=== PATIENT | male | born 1955 | race Caucasian/White ===

== ENCOUNTER 2017-12-14 12:07 | Emergency (ER) | payer OTHER ==
[2017-12-14 12:32] LABS: PLATELET COUNT 233 10^3/uL (150-400)
--- NOTE | 2017-12-14 13:57 | EDPHY ---
H & P Time Seen by Provider: 12/14/17 12:19 HPI/ROS: HPI Palpitations, lightheaded. 62-year-old male by ambulance. This patient was at the ENT office with his . The patient reports that at approximately 10:30 a.m. He developed palpitations which she describes as his heart beating fast. He had some associated lightheadedness. An ambulance was called from the ENT office and he was brought to the emergency department. He denies any associated chest pain. On the way to the emergency department an IV was established and he was administered 6 mg of IV adenosine by EM S. By the time he got the emergency department he had converted to a normal sinus rhythm and was feeling much better. ROS: Constitutional: No fever, no chills. As above. Eyes: No discharge. No changes in vision. ENT: No sore throat. No nasal congestion or rhinorrhea. Respiratory: No cough. No shortness of breath. Cardiac: No chest pain, as above. Gastrointestinal: No abdominal pain, no vomiting, no diarrhea. Genitourinary: No hematuria. No dysuria or increased frequency with urination. Musculoskeletal: No back pain. No neck pain. No myalgias or arthralgias. Skin: No rashes. Neurological: No headache. No focal weakness or altered sensation. Past medical history: Graves, thyroidectomy, PTSD. Social history: Nonsmoker. Here with his . No alcohol. Physical Exam: General Appearance: Alert, no distress. This patient is responding to questions appropriately and in full sentences. This patient appears well- hydrated and well-nourished. Eyes: Pupils equal and round no pallor or injection. No lid edema, erythema or injection. Respiratory: There are no retractions, lungs are clear to auscultation with good air movement bilaterally. Cardiovascular: Regular rate and rhythm. No murmur appreciated. Gastrointestinal: Abdomen is soft and nontender, no masses, bowel sounds normal. No focal tenderness at McBurney's point. No Ren[place] sign. Neurological: Motor sensory function is grossly intact. Cranial nerves are normal. Gait is normal. Skin: Warm and dry, no rashes. Musculoskeletal: Neck is supple and nontender. Extremities are symmetrical. All joints range without pain or impingement. Psychiatric: No agitation. No depression. Database: EKG: EKG time is 12:12 p.m.; EKG shows a narrow complex normal sinus rhythm with a ventricular rate of 89. The NV, QRS, QT intervals are within normal limits. There are no ST-T wave changes indicative of ischemic or injury pattern. No evidence of right heart strain. No evidence of Brugada syndrome, WPW, hypertrophic cardiomyopathy. Interpreted by me. Imaging: Procedures: Emergency department course: Triage vital signs reviewed. Patient afebrile. Initial triage blood pressure 91/64. IV was placed per EMS as noted above. Patient was administered a full L of IV normal saline. EKG obtained and reviewed by myself. 2:00 p.m., the patient was re-evaluated. Resting comfortably at this time. He denies any chest pain, palpitations or other symptoms. Blood pressure currently 98/48. night monitor shows a narrow complex sinus rhythm with ventricular rate of 75. Results of his emergency department workup discussed with him. I have also ordered thyroid studies. These are not back yet. I discussed his elevated creatinine which is 2.2 and significantly higher than his baseline. He does feel comfortable going home and I feel he is safe for discharge. I will arrange for cardiology consultation. I also stressed that he needed to follow up with his primary care physician by the end of the week for re-evaluation, obtaining his thyroid study results and reassessment of his kidney function and creatinine. He is in agreement with this plan. He does feel comfortable going home with his . Return to emergency department precautions were reviewed thoroughly with him. All of his questions were answered. He was discharged from the emergency department in good condition. Differential Diagnosis: The differential diagnosis on this patient includes but is not limited to SVT, dehydration. Acute coronary syndrome, thyroid storm, pulmonary embolism, ventricular tachycardia unlikely. This represents a partial list of diagnoses considered. These considerations are based on history, physical exam, past history, reassessment and diagnostic testing. Smoking Status: Never smoked Constitutional: Initial Vital Signs Temperature (C) 36.9 C 12/14/17 12:07 Heart Rate 93 12/14/17 12:07 Respiratory Rate 16 12/14/17 12:07 Blood Pressure 91/64 L 12/14/17 12:07 O2 Sat (%) 95 12/14/17 12:07 O2 Delivery Mode Room Air Allergies/Adverse Reactions: iodine Allergy (Verified 11/30/11 16:59) Home Medications: Medication Instructions Recorded LEVOTHYROXINE SODIUM [Levoxyl] 0.112 mcg PO DAILY 05/24/10 Sertraline HCl [Zoloft 20mg/ml 50 mg PO DAILY 11/30/11 oral liquid] Meclizine HCl [Meclizine HCl 25 mg 25 mg PO BID PRN #20 tab 02/04/14 (RX,OTC)] busPIRone 02/04/14 Medical Decision Making - Data Points Laboratory Results: Laboratory Results 12/14/17 12:12 12/14/17 12:12 12/14/17 12/14/17 12/14/17 12:16 12:12 12:12 WBC 7.89 10^3/uL 10^3/uL (3.80-9.50) RBC 5.24 10^6/uL 10^6/uL (4.40-6.38) Hgb 16.5 g/dL g/dL (13.7-17.5) Hct 48.0 % % (40.0-51.0) MCV 91.6 fL fL (81.5-99.8) MCH 31.5 pg pg (27.9-34.1) MCHC 34.4 g/dL g/dL (32.4-36.7) RDW 13.0 % % (11.5-15.2) Plt Count 233 10^3/uL 10^3/uL (150-400) MPV 10.0 fL fL (8.7-11.7) Neut % (Auto) 48.3 % % (39.3-74.2) Lymph % (Auto) 41.2 % % (15.0-45.0) Dougherty % (Auto) 7.1 % % (4.5-13.0) Eos % (Auto) 2.2 % % (0.6-7.6) Baso % (Auto) 0.9 % % (0.3-1.7) Nucleat RBC Rel Count 0.0 % % (0.0-0.2) Absolute Neuts (auto) 3.82 10^3/uL 10^3/uL (1.70-6.50) Absolute Lymphs (auto) 3.25 10^3/uL H 10^3/uL (1.00-3.00) Absolute Monos (auto) 0.56 10^3/uL 10^3/uL (0.30-0.80) Absolute Eos (auto) 0.17 10^3/uL 10^3/uL (0.03-0.40) Absolute Basos (auto) 0.07 10^3/uL 10^3/uL (0.02-0.10) Absolute Nucleated RBC 0.00 10^3/uL 10^3/uL (0-0.01) Immature Gran % 0.3 % % (0.0-1.1) Immature Gran # 0.02 10^3/uL 10^3/uL (0.00-0.10) Sodium 140 mEq/L mEq/L (135-145) Potassium 3.9 mEq/L mEq/L (3.3-5.0) Chloride 104 mEq/L mEq/L (97-110) Carbon Dioxide 23 mEq/l mEq/l (22-31) Anion Gap 13 mEq/L mEq/L (8-16) BUN 23 mg/dL mg/dL (7-23) Creatinine 2.2 mg/dL H mg/dL (0.7-1.3) Estimated GFR 30 Glucose 113 mg/dL H mg/dL (70-100) Calcium 9.9 mg/dL mg/dL (8.5-10.4) POC Troponin I 0.03 ng/mL ng/mL (0.00-0.08) Point of Care Test Results: Chemistry 12/14/17 12:16 POC Troponin I 0.03 ng/mL ng/mL (0.00-0.08) Departure - Departure Disposition: Home, Routine, Self-Care Clinical Impression: SVT (supraventricular tachycardia) Condition: Good Instructions: Supraventricular Tachycardia (ED) Additional Instructions: Read and follow provided instructions. Follow-up with your primary care physician in 1-2 days for re-evaluation. You need to have your kidney function rechecked. You need to have your creatinine which is a measure of your kidney function recheck. Keep well hydrated. Call the offices of Dr. Kevin Rubin at [facility] for appointment time in the next 2-3 days for re-evaluation of your heart palpitations. I have also sent them in order for outpatient follow-up and consultation on you. Take your medication as prescribed. Return to the emergency department for chest pain, shortness of breath, palpitation or other serious concerns. Referrals: Tawny Osullivan MD [Primary Care Provider] - As per Instructions Daniel Rubin MD [Medical Doctor] - As per Instructions
[2017-12-14 14:24] VITALS: BP 101/56
--- NOTE | 2017-12-14 15:05 | CPEKG ---
Test Reason : OPEN Blood Pressure : / mmHG Vent. Rate : 089 BPM Atrial Rate : 089 BPM P-R Int : 142 ms QRS Dur : 078 ms QT Int : 363 ms P-R-T Axes : 053 031 -07 degrees QTc Int : 442 ms Sinus rhythm Borderline T abnormalities, inferior leads Confirmed by Louie Martin ([id number]) on 12/14/2017 3:04:49 PM Referred By: Confirmed By:Louie Martin
== END 2017-12-14 14:23 | disposition home or self-care (01) ==
LOC: EDUNIT#
DX: I47.1 Supraventricular tachycardia (principal)
CPT/HCPCS: 84481-90; 84484-PO